=== PATIENT | female | born 1940 | race Caucasian/White ===

== ENCOUNTER 2016-10-25 21:55 | Emergency (ER) | payer MEDICARE ==
--- NOTE | 2016-10-25 21:51 | ED.REPORT ---
HPI-Chest Pain 40 and Over Date of Service Oct 25, 2016 ED Provider: Stu Salazar MD Patient is a 76 year old female with a history of hypertension, hyperlipidemia, and GERD with hiatal hernia who presents to the ED via EMS after she developed chest pain at 7pm this evening, following a month of intermittent dyspnea on exertion. Tonight the patient developed chest heaviness and increased shortness of breath, which she treated with 2x 81mg aspirin. Her pain continued until EMS arrival at 9pm, when she received an additional 2x 81mg aspirin. Chest pain resolved on arrival to the ED. EMS placed the patient on oxygen, getting her up to 94% on 6L. She states that her exercise capacity has reduced significantly and when she lays down flat at night. She has been especially short of breath for the past 3 days. She reports increased swelling in her legs, worse at night , especially severe in her right leg. The patient reports a history of phlebitis , but denies a history of DVT or pulmonary embolism. She denies any cardiac history, but her mother of a heart attack at age 71. The patient reports a productive cough in the morning when she wakes up, but she does not otherwise have a cough. The patient states that she had plans to see her PCP this week, but she put it off. EMS initial EKG was concerning for a posterior wall KS, but EKG on arrival to ED does not show an acute KS. Nursing Notes Stated Complaint: SOB Chief Complaint: Chest Pain Nursing Notes Reviewed: Yes Allergies: Coded Allergies: No Known Allergies (Verified Allergy, Unknown, 03/21/16) Scheduled Calcium Carbonate (Calcium) 600 Mg Tablet 1,200 MG PO DAILY Cholecalciferol (Vitamin D3) (Vitamin D3) 5,000 Unit Capsule 5,000 UNIT PO DAILY Fish Oil/Borage/Flax/Om3,6,9#1 (Laurens 3-6-9 1,200 mg Softgel) 1,200 Mg Capsule 1 ,200 MG PO DAILY Gabapentin (Gabapentin) 300 Mg Capsule 300 MG PO TID TAKES 100MG IN AM; 100MG IN PM; 200MG @ HS Levothyroxine (Levothyroxine) 88 Mcg Tablet 88 MCG PO DAILY Lovastatin (Lovastatin) 40 Mg Tablet 40 MG PO HS Multivitamin (Multi Vitamin Daily) 1 Each Tablet 1 EACH PO DAILY Omeprazole (Omeprazole) 20 Mg Tablet.dr 20 MG PO DAILY Ubidecarenone (Coenzyme Q10) 100 Mg Tablet 3,000 MG PO DAILY Venlafaxine (Venlafaxine) 75 Mg Tablet 75 MG PO BID 1/2 tab bid Scheduled PRN Lorazepam (Lorazepam) 0.5 Mg Tablet 0.5-1 MG PO 3X/WEEK PRN PRN For Insomnia Naproxen (Naproxen Suspension) 125 Mg/5 Ml Oral.susp 10 ML PO Q6-8H PRN PRN PRN General Time Seen by MD: 21:51 Chief Complaint Chest pain, Shortness of breath Hx Obtained From: Patient, EMS Arrived By: Ambulance Sudden in Onset?: No Onset Occurred: 1 - 4 hours ago Symptom Duration: 1 - 4 hours Location: : Chest left: Chest right Quality: Heaviness, Painful Severity: Current: No pain currently Severity: Maximum: Moderate Recent Healthcare: No recent doctor visit, No recent hospitalization Similar Sx Previous: No Past Medical History Past Medical History GERD hiatal hernia osteoarthritis depression anxiety thyroid disease hypertension hyperlipidemia phlebitis Past Surgical History incarcerated umbilical hernia endoscopy Family History Brother at age 71 of a heart attack Smoking History Former Smoker Social History Other Social History: Good social support, , Local resident Ambulatory Status Independent Review of Systems Respiratory: Reports: Dyspnea on exertion, Prod cough, white, Shortness of breath, Denies: Non-productive cough Cardiovascular: Reports: Chest pain GI: Denies: Nausea, Vomiting Musculoskeletal: Reports: Extremity swelling Complete sys rev & neg: except as marked. Physical Exam Physical Exam Notes: Initial Vital Signs Vital Signs (First) Date Time Temp Pulse Resp B/P Pulse Ox O2 Delivery O2 Flow Rate FiO2 10/25/16 21:58 36.8 104 20 186/103 95 6 10/25/16 22:12 Nasal Cannula Initial VS: Reviewed Head / Eyes: Atraumatic, Normocephalic, PERRL ENT: Conjunctiva normal, No scleral icterus Skin: Warm, Dry, No cyanosis Neurologic: Alert, Oriented, Nonfocal Psychiatric: Mood/affect normal, Behavior normal, Normal thought content General/Constitutional: Awake, Alert, No acute distress, Well appearing Behavior: Positive: Anxious Respiratory / Chest: Breath sounds = bilat, No respiratory distress, No rales, No rhonchi, No wheezing breathing at the top of the respiratory cycle, not breathing deeply Cardiovascular: Regular rhythm, Heart sounds NL Heart Rate / Rhythm: Positive: Tachycardia (mild) Abdomen: Soft (obese), Non-tender, No guarding, No rebound Neck: Supple, No JVD (on obvious DVT, limited by patient's neck size) Lower Extremity / Pelvis / MS: No swelling, Non-tender (no calf or thigh tenderness), No edema Upper Extremity / MS: No swelling, No edema Interpretation & Diagnostics Lab Results Interpretation Result Diagram: 10/25/16214910/25/162149 Test 10/25/16 21:50 10/26/16 00:05 10/26/16 01:36 White Blood Count 9.3th/mm3 (3.8-10.1) Red Blood Count 4.73mil/mm3 (3.90-5.20) Hemoglobin 13.7g/dL (12.0-15.6) Hematocrit 42.4% (35.0-46.0) Mean Corpuscular Volume 89.6fL (81-100) Mean Corpuscular Hemoglobin 29.0pg (27.0-35.0) Mean Corpuscular Hemoglobin Concent 32.3% (32.0-37.0) Red Cell Distribution Width 15.8% (12.3-15.4) Platelet Count 241bil/L (150-400) Neutrophils (%) (Auto) 66.9% (40-74) Lymphocytes (%) (Auto) 18.5% (14-46) Monocytes (%) (Auto) 9.9% (4-12) Eosinophils (%) (Auto) 4.3% (0-5) Basophils (%) (Auto) 0.2% (0-3) Prothrombin Time 10.0sec (8.1-12.5) Prothromb Time International Ratio 0.94ratio Activated Partial Thromboplast Time 27.4sec (22.8-33.0) D-Dimer 2.4mg/L (<0.50) Sodium Level 140mEq/L (134-144) Potassium Level 4.2mEq/L (3.5-5.2) Chloride Level 102mEq/L (97-108) Carbon Dioxide Level 25mmol/L (18-29) Blood Urea Nitrogen 27mg/dL (8-27) Creatinine 0.99mg/dL (0.57-1.00) Estimat Glomerular Filtration Rate 79mL/min (>59) Glucose Level 115mg/dL (60-99) Calcium Level 10.2mg/dL (8.5-10.1) Magnesium Level 2.2mg/dL (1.6-2.6) Total Bilirubin 0.2mg/dL (0.0-1.2) Aspartate Amino Transf (AST/SGOT) 22U/L (0-50) Alanine Aminotransferase (ALT/SGPT) 14U/L (0-32) Alkaline Phosphatase 109U/L (25-165) Pro-B-Type Natriuretic Peptide 89.99pg/mL (0-738) Total Protein 7.4g/dL (6.4-8.4) Albumin 3.9g/dL (3.4-5.0) Hold Urine Received (Received) Troponin T 0.010ug/L (0.0-0.011) ECG Interpretation ECG Interpretation: Sinus tachycardia, Rate 103 Borderline prolonged CA interval Low voltage, precordial leads Time: 22:02 Interpreted by: ED physician Time: 01:11 Interpreted by: ED physician Normal ECG Interpretation: Normal sinus rhythm Repeat ECG: Repeat ECG unchanged X-Ray Chest Interpretation Chest Xray Interpretation: Impression: Hiatal hernia. No acute process. View: Portable Interpretation / Wet Read by: Wet read ED physician CT Chest Interpretation CONCLUSION: No PE. Left lung nodule which requires followup. Other findings as noted above. Radiologist: Pete Hannah MD 10/25/2016 - 11:45:06 PM PST Study type: CT pulm angiogram Interpretation / Wet Read by: Interpret - Radiologist Re-Eval/Medical Decision Med Decision/Clinical Course 76-year-old presents with chest pain and shortness of breath, shortness of breath developing over many weeks, and becoming progressively worse. She also notes some orthopnea. Her enzymes 2 are negative, and EKG is unremarkable and stable. A d-dimer was elevated and it CT angios was negative for clot. She has a 6 mm nodule requires follow-up. She has a large hiatal hernia with stomach partly up in her chest. Sores her pain is not clear but may be related to her hiatal hernia and reflux. Source of her dyspnea is not clear but no evidence of CHF on her evaluation with a normal BNP and an unremarkable chest x-ray. He is follow-up especially a stress test, probably will require a MIBI test to evaluate further. No indication of bronchospasm or other immediately treatable entity. Not on a PPI and was started on omeprazole, given her hiatal hernia and reflux symptoms. Discharged in stable condition. Source of Hx: Old records Time of Eval: 23:10 Re-Evaluation/Progress Note: Rechecked the patient, who was informed that she has an elevated D-Dimer. She will need to have a CT Angio of her chest. Patient understands and agrees with this plan. Time of Eval: 00:29 Re-Evaluation/Progress Note: CT scan was negative for PE. Will repeat troponin prior to discharge. Time of Eval: 02:16 Patient Status: Condition improved Re-Evaluation/Progress Note: Repeat troponin was negative. Patient understands and agrees with the plan to be discharged home. Discharge instructions and follow-up discussed. All questions were addressed. Return to the ED warnings given. Counseled Regarding: Diagnosis, Lab results, Need for follow-up, When/why to return to ED Discharge & Departure Primary Impression: Chest pain Chest pain type: unspecified Qualified Code: R07.9 - Chest pain, unspecified Disposition: Home Discharge Condition All VS Reviewed: Yes Condition: Stable Patient Instructions: Chest Pain (ED) Additional Instructions: The source of your pain may be cardiac. The source of your altered exercise capacity may also be Cardiac. You need a stress test to evaluate this further. Call your doctor on Thursday morning to arrange a stress test as an outpatient this week. Return if any prolonged chest pain or others new symptoms over the weekend. Take a baby aspirin once daily. Take Prilosec one Daily Referrals: Tanisha Kwong PA-C (PCP) Magalis Attestation Portions of this note were transcribed by Inez Mchugh. I, Dr. Salazar personally performed the history, physical exam and medical decision-making; I reviewed and confirmed the accuracy of the information in the transcribed note. Signed by: Magalis Gonsales, 10/26/2016 0217 copies to: Tanisha Kwong PA-C, Christopher W MD Oct 25, 2016 21:51 Inez Mchugh Oct 25, 2016 22:12
[~2016-10-25 21:55] MED LIST: CALC600T12 PO; CHOL5000 PO; FISH12002 PO; GABA-502 PO; LEVO88TA4 PO; LORA0.5T PO; LOVA40TA PO; MULT-1018 PO; NAPR125O4 PO; UBID100T7 PO; VENL75TA3 PO
[2016-10-25 21:58] VITALS: BP 186/103; PULSE 104; RESP 20; O2SAT 95
[2016-10-25] MEDS ORDERED: MeTOProlol 1 mg/mL 5 mL Inj IVPUSH ONE (22:05)
[2016-10-25] MEDS ORDERED: Nitroglycerin 2% 1 Gm Ointment TOPICAL ONE (22:05)
[2016-10-25 22:12] VITALS: BP 189/102; PULSE 102; RESP 22; O2SAT 95
[2016-10-25 22:12] LABS: BASOPHILS % (AUTO) 0.2 % (0-3); EOSINOPHILS % (AUTO) 4.3 % (0-5); MONOCYTES % (AUTO) 9.9 % (4-12); Mean Corpuscular Volume 89.6 fL (81-100); NEUTROPHILS % (AUTO) 66.9 % (40-74); Platelet Count 241 bil/L (150-400)
[2016-10-25 22:32] LABS: TROPONIN T 0.01 ug/L (0.0-0.011)
[2016-10-25 22:43] LABS: Magnesium 2.2 mg/dL (1.6-2.6)
[2016-10-25 22:45] VITALS: BP 171/89; PULSE 75; RESP 23; O2SAT 92
[2016-10-25 22:50] LABS: D-DIMER 2.4 mg/L (<0.50); INR 0.94 ratio
[2016-10-26] VITALS: BP 162/84; PULSE 90; RESP 22; O2SAT 95
[2016-10-26] MEDS ORDERED: Pantoprazole 4 mg/mL 10 mL Inj IVPUSH ONE (01:00)
[2016-10-26 01:15] VITALS: BP 160/92; PULSE 82; RESP 18; O2SAT 97
[2016-10-26 01:47] VITALS: BP 145/92; PULSE 80; RESP 20; O2SAT 97
[2016-10-26] MEDS ORDERED: OMEP20TA86 PO (02:14)
--- NOTE | 2016-10-26 02:18 | NUR ---
[facility] Note Staff introduced themselves to patient as [facility]. Staff stood by while patient voided. At this time patient appeared bright but tired, stating that she was glad she sent her home. Patient said that she didn't live far away but that she worried about his driving in the weather and wanted him to get some rest. She reported feeling physically uncomfortable (the bed specifically) but was glad she was here. She is looking forward to "getting everything sorted out" and going home.
[2016-10-26 03:06] VITALS: BP 153/96; PULSE 84; RESP 16; O2SAT 94
--- NOTE | 2016-10-26 06:55 | DRSVH ---
PROCEDURE: X-RAY CHEST ONE VIEW, PORTABLE ([id number]) INDICATIONS: sob TECHNIQUE: One view of the chest was acquired. COMPARISON: [facility], , CHEST 1VW (PORTABLE), 04/19/2007, 9:20. FINDINGS: Surgical changes and devices: None. Lungs and pleura: No pleural effusions or pneumothorax. Lungs are clear. Mediastinum: Mediastinal contours appear normal. Heart size is normal. Bones and chest wall: No suspicious bony lesions. Overlying soft tissues appear unremarkable. IMPRESSION: No acute cardiopulmonary disease process. Dictated by: Vibha Snider MD, PhD on 10/26/2016 at 6:54 Approved by: Vibha Snider MD, PhD on 10/26/2016 at 6:54
--- NOTE | 2016-10-26 07:18 | DRSVH ---
PROCEDURE: CT ANGIO CHEST PULMONARY EMBOLISM ([id number]) INDICATIONS: sob, elevated d dimer TECHNIQUE: After the administration of intravenous contrast, 2 mm thick sections acquired from the pulmonary api lynnette to the posterior costophrenic angles. 3-dimensional maximum intensity projection (MIP) coronal a nd sagittal reformats were then acquired through the thorax. For radiation dose reduction, the follo wing was used: automated exposure control, adjustment of mA and/or kV according to patient size. COMPARISON: [facility], [place], XR CHEST 1VW (PORTABLE), 10/25/2016, 22:05. FINDINGS: Image quality: Excellent. Pulmonary arteries: Pulmonary arteries are normal in size, and demonstrate no intraluminal filling d efects to suggest central pulmonary embolism. Lungs and pleura: Lungs are clear of acute opacities. Scarring noted in the lingula left upper lobe . There is a 0.8 cm solid nodule in the posterior left upper lobe (series 5, image 16. There is a 3 mm nodule in the left lower lobe (series 5, image 32. There is a 6 mm subsolid nodule in the process control manager ior left lower lobe (series 5, image 37). There is a 3 mm nodule in the right lower lobe (series 5, image 32. There is a 3 mm subpleural nodule in the right lower lobe (series 5, image 38. There is a 5 mm subsolid nodule in the right middle lobe (series 5, image 28. There is a 2 mm subpleural nodul e in the right upper lobe (series 5, image 26.. No pleural effusions or pneumothorax. Central and p eripheral airways are patent. Mediastinum: Heart size is normal, without pericardial effusion. Atherosclerotic calcifications are noted in the aorta, great vessels and the coronary vasculature. No mediastinal or hilar adenopathy. Thoracic aorta is normal in caliber and enhancement. Esophagus is normal in caliber, without hiatal hernia. Bones and chest wall: No suspicious bony lesions. Ribs and thoracic spine appear intact throughout. No axillary or supraclavicular adenopathy. Abdomen: Right renal cysts are noted. Moderate-sized hiatal hernia is noted. IMPRESSION: 1. No pulmonary embolus. 2. Multiple pulmonary nodules as described above. Recommend followup imaging based on criteria outl ined below. 3. Atherosclerosis including the coronary vascular. 4. Hiatal hernia. Fleischner Society criteria for SOLID lung nodule followup. Nodule size (mm)Low-risk patientHigh-risk [id number] follow-up neededFollow-up at 12 mo; if no jeffery e, no further follow-up>[id number] CT at 12 mo; if no change, no further follow-up needed.Initial f ollow-up CT at 6-12 mo, then 18-24 mo if no change. >6-8Initial follow-up CT at 6-12 mo, then 18-24 mo if no change. Initial follow-up CT at 3-6 mo, then 9-12 mo and 24 mo if no change. >8Follow-up CT at 3, 9, 24 mo. Or PET and/or biopsy.Same as for low-risk pts. Fleischner Society criteria for SUB-SOLID lung nodule followup. Solitary pure ground-glass nodules5 mm or lessNo followup needed. >5 mm3 mo follow-up CT to confirm persistence. Then annual CT for 3 years. Part-solid nodules3 mo follow-up CT to confirm persistence . If persistent with solid component <5 mm, annual CT for at least 3 years. If solid component is 5 mm or more, biopsy or surgical resection. Consider PET-CT for lesions > 10 mm. Multiple sub-solid nodulesPure ground glass nodules [address] at 2 and 4 years. Pure ground glass nodules >5 mm without dominant lesion. [address] to confirm persistence, then annual followup CT for at least 3 years. Dominant nodule(s) with part-solid or solid component. [address] to confirm persistence. If persistent, consider biopsy or surgical resection, jami if lesions have >5 m m solid component. Dictated by: Vibha Snider MD, PhD on 10/26/2016 at 7:16 Approved by: Vibha Snider MD, PhD on 10/26/2016 at 7:16
== END 2016-10-26 03:07 | disposition home or self-care (01) ==
LOC: SED 21:55
DX: R07.9 Chest pain, unspecified (principal); R06.02 Shortness of breath; M79.89 Other specified soft tissue disorders; R05 Cough; I10 Essential (primary) hypertension; K21.9 Gastro-esophageal reflux disease without esophagitis; E07.9 Disorder of thyroid, unspecified; E78.5 Hyperlipidemia, unspecified; Z87.891 Personal history of nicotine dependence
CPT/HCPCS: 36415; 71010; 71275; 80053; 83735; 83880; 84484; 85025; 85379; 85610; 85730; 93005; 96374; 96375; 99285; Q9967